=== PATIENT | male | born 1965 | race Two or more races ===

== ENCOUNTER 2020-09-07 09:47 | Outpatient (CLI) | payer BC, OTHER ==
[2020-09-07 10:45] LABS: *BILIRUBIN,URIN NEGATIVE (NEGATIVE); *BLOOD, URINE NEGATIVE (NEGATIVE); *CLARITY,URINE SLIGHTLY CLOUDY (CLEAR); *COLOR,URINE YELLOW (YELLOW); *KETONES,URINE NEGATIVE (NEGATIVE); *UROBILINOGEN,URINE 0.2 E.U./dl (NORMAL); BASOPHILS # (AUTO) 0.1 K/uL (0.0-8.0); BASOPHILS % (AUTO) 0.7 % (0.0-2.0); EOSINOPHILS # (AUTO) 0.2 K/uL (0.0-0.7); EOSINOPHILS % (AUTO) 2.4 % (0.0-7.0); HEMATOCRIT 45.8 % (36.7-47.1); HEMOGLOBIN 15.8 g/dL (12.5-16.3); LEUKOCYTE ESTERASE ,URINE NEGATIVE (NEGATIVE); LYMPHOCYTES # (AUTO) 2.8 K/uL (20.0-40.0); LYMPHOCYTES % (AUTO) 36.8 % (20.5-51.5); MEAN CORPUSCULAR HEMOGLOBIN 30.8 uug (23.8-33.4); MEAN CORPUSCULAR HGB CONC 34 g/dL (32.5-36.3); MEAN CORPUSCULAR VOLUME 89.3 fL (73.0-96.2); MONOCYTES # (AUTO) 0.6 K/uL (2.0-10.0); MONOCYTES % (AUTO) 7.5 % (0.0-11.0); NEUTROPHILS # (AUTO) 4.1 K/uL (1.8-8.9); NEUTROPHILS % (AUTO) 52.6 % (38.5-71.5); NITRITE, URINE NEGATIVE (NEGATIVE); PH,URINE 5.5 (5.0-8.0); PLATELET COUNT (AUTO) 228 K/uL (152-348); RED BLOOD CELL COUNT(AUTO) 5.13 MIL/uL (4.06-5.63); UGLUCOSE NEGATIVE (NEGATIVE); WHITE BLOOD COUNT (AUTO) 7.7 K/uL (3.6-10.2)
[2020-09-07 11:17] LABS: THYROID STIMULATING HORMONE 2.009 mIU/mL (0.358-3.740)
[2020-09-07 11:59] LABS: BILIRUBIN,TOTAL 0.9 mg/dL (0.2-1.0); CREATININE 1.1 mg/dL (0.6-1.3); POTASSIUM 4.2 mmol/L (3.5-5.1); TOTAL PROTEIN, SERUM 8.2 g/dL (6.4-8.2); URIC ACID 6.3 mg/dL (3.5-7.2)
== END 2020-09-07 23:59 | disposition home or self-care (01) ==
LOC: LAB 09:47
PROVIDERS: ATTEND Internal Medicine
DX: E03.9 Hypothyroidism, unspecified (principal); E78.5 Hyperlipidemia, unspecified; B19.20 Unspecified viral hepatitis C without hepatic coma
CPT/HCPCS: 70030-TC; 82306; 84153; 84443; 84480; 84550; 85025; 86706; 86803; 87086

== ENCOUNTER 2020-09-30 06:13 | Emergency (ER) | payer BC, OTHER ==
[~2020-09-30] VITALS: Ht 165.1 cm; Wt 70.3 kg
--- NOTE | 2020-09-30 06:30 | NUR ---
Pt arrived at the ER with complaint of lost of taste.
--- NOTE | 2020-09-30 06:41 | NUR ---
Dr. Hawkins at bedside for MSE.
--- NOTE | 2020-09-30 07:08 | NUR ---
Report given to day shift nurse Obed.
--- NOTE | 2020-09-30 07:24 | NUR ---
Pt Given d/c instructions, pt verbalized understanding.
--- NOTE | 2020-09-30 07:25 | NUR ---
Patient discharged to home in stable condition. Written and verbal after care instructions given. Patient verbalizes understanding of instructions. Stressed follow up or return to ER for worsening s/s.
--- NOTE | 2020-09-30 07:47 | NUR ---
Notified pt of rapid results by phone. Advised to quarentine 10 days per MD.
== END 2020-09-30 07:25 | disposition home or self-care (01) ==
LOC: ER 06:18
DX: U07.1 COVID-19 (principal); R43.8 Other disturbances of smell and taste; R03.0 Elevated blood-pressure reading, without diagnosis of hypertension; Z95.5 Presence of coronary angioplasty implant and graft
CPT/HCPCS: A4663

== ENCOUNTER 2020-12-21 08:55 | Outpatient (CLI) | payer BC, OTHER ==
[2020-12-21 09:51] LABS: BASOPHILS # (AUTO) 0.1 K/uL (0.0-8.0); BASOPHILS % (AUTO) 0.7 % (0.0-2.0); EOSINOPHILS # (AUTO) 0.2 K/uL (0.0-0.7); HEMATOCRIT 44.1 % (36.7-47.1); HEMOGLOBIN 15.3 g/dL (12.5-16.3); LYMPHOCYTES # (AUTO) 3.1 K/uL (20.0-40.0); LYMPHOCYTES % (AUTO) 40.4 % (20.5-51.5); MEAN CORPUSCULAR HEMOGLOBIN 31.1 uug (23.8-33.4); MEAN CORPUSCULAR HGB CONC 35 g/dL (32.5-36.3); MEAN CORPUSCULAR VOLUME 89.4 fL (73.0-96.2); MONOCYTES # (AUTO) 0.6 K/uL (2.0-10.0); MONOCYTES % (AUTO) 8.3 % (0.0-11.0); NEUTROPHILS # (AUTO) 3.7 K/uL (1.8-8.9); NEUTROPHILS % (AUTO) 47.6 % (38.5-71.5); PLATELET COUNT (AUTO) 225 K/uL (152-348); RED BLOOD CELL COUNT(AUTO) 4.94 MIL/uL (4.06-5.63); WHITE BLOOD COUNT (AUTO) 7.7 K/uL (3.6-10.2)
[2020-12-21 10:05] LABS: POTASSIUM 4.2 mmol/L (3.5-5.1); TOTAL PROTEIN, SERUM 8.1 g/dL (6.4-8.2)
[2020-12-21 10:13] LABS: THYROID STIMULATING HORMONE 2.344 mIU/mL (0.358-3.740)
== END 2020-12-21 23:59 | disposition home or self-care (01) ==
LOC: LAB 08:55
PROVIDERS: ATTEND Internal Medicine Gastroenterology
DX: K59.00 Constipation, unspecified (principal); R10.9 Unspecified abdominal pain; R12 Heartburn
CPT/HCPCS: 82105; 84443; 85025; 86704; 86803; 87340; 87350; 87536; 87806

== ENCOUNTER 2020-12-31 06:31 | Outpatient (CLI) | payer BC, OTHER | END 2020-12-31 23:59 | disposition home or self-care (01) | LOC: LAB 06:31 | PROVIDERS: ATTEND Internal Medicine Gastroenterology | DX: Z01.812 Encounter for preprocedural laboratory examination (principal); Z20.822 Contact with and (suspected) exposure to COVID-19 ==

== ENCOUNTER 2021-01-03 11:03 | Day surgery (SDC) | payer BC, OTHER ==
[2021-01-03] MEDS ORDERED: PROPOFOL 200 MG/20 ML BOTTLE IV ONE (11:04)
[2021-01-03 11:37] LABS: *BILIRUBIN,URIN NEGATIVE (NEGATIVE); *BLOOD, URINE NEGATIVE (NEGATIVE); *CLARITY,URINE SLIGHTLY CLOUDY (CLEAR); *COLOR,URINE YELLOW (YELLOW); *KETONES,URINE NEGATIVE (NEGATIVE); *UROBILINOGEN,URINE 0.2 E.U./dl (NORMAL); LEUKOCYTE ESTERASE ,URINE NEGATIVE (NEGATIVE); NITRITE, URINE NEGATIVE (NEGATIVE); PH,URINE 5.5 (5.0-8.0); UGLUCOSE NEGATIVE (NEGATIVE)
[2021-01-03 12:10] LABS: BASOPHILS # (AUTO) 0.1 K/uL (0.0-8.0); BASOPHILS % (AUTO) 0.7 % (0.0-2.0); EOSINOPHILS # (AUTO) 0.2 K/uL (0.0-0.7); EOSINOPHILS % (AUTO) 2.3 % (0.0-7.0); HEMATOCRIT 46.9 % (36.7-47.1); LYMPHOCYTES # (AUTO) 3.6 K/uL (20.0-40.0); LYMPHOCYTES % (AUTO) 38.3 % (20.5-51.5); MEAN CORPUSCULAR HEMOGLOBIN 30.6 uug (23.8-33.4); MEAN CORPUSCULAR HGB CONC 34 g/dL (32.5-36.3); MEAN CORPUSCULAR VOLUME 89.6 fL (73.0-96.2); MONOCYTES # (AUTO) 0.8 K/uL (2.0-10.0); MONOCYTES % (AUTO) 8.3 % (0.0-11.0); NEUTROPHILS # (AUTO) 4.7 K/uL (1.8-8.9); NEUTROPHILS % (AUTO) 50.4 % (38.5-71.5); PLATELET COUNT (AUTO) 229 K/uL (152-348); RED BLOOD CELL COUNT(AUTO) 5.23 MIL/uL (4.06-5.63); WHITE BLOOD COUNT (AUTO) 9.4 K/uL (3.6-10.2)
[2021-01-03 12:13] LABS: CREATININE 1.1 mg/dL (0.6-1.3); POTASSIUM 3.7 mmol/L (3.5-5.1)
== END 2021-01-03 14:43 | disposition home or self-care (01) ==
LOC: DS 11:03
PROVIDERS: ATTEND Internal Medicine Gastroenterology
DX: K59.00 Constipation, unspecified (principal); R10.13 Epigastric pain; B19.20 Unspecified viral hepatitis C without hepatic coma; R11.10 Vomiting, unspecified; K44.9 Diaphragmatic hernia without obstruction or gangrene; K29.50 Unspecified chronic gastritis without bleeding; K29.70 Gastritis, unspecified, without bleeding; K31.89 Other diseases of stomach and duodenum; K63.89 Other specified diseases of intestine; K64.8 Other hemorrhoids; K21.00 Gastro-esophageal reflux disease with esophagitis, without bleeding; I25.10 Atherosclerotic heart disease of native coronary artery without angina pectoris; Z79.899 Other long term (current) drug therapy; Z98.890 Other specified postprocedural states
CPT/HCPCS: 36415; 43239; 45378; 71045; 80048; 81003; 85025; 85610; 93005; J7120; A4217; A4663; J3490

== ENCOUNTER 2021-01-20 07:10 | Outpatient (CLI) | payer BC, OTHER | END 2021-01-20 23:59 | disposition home or self-care (01) | LOC: LAB 07:10 | PROVIDERS: ATTEND Internal Medicine Gastroenterology | DX: B19.20 Unspecified viral hepatitis C without hepatic coma (principal) | CPT/HCPCS: 36415 ==

== ENCOUNTER 2021-04-04 08:02 | Outpatient (CLI) | payer BC, OTHER | END 2021-04-04 23:59 | disposition home or self-care (01) | LOC: LAB 08:02 | PROVIDERS: ATTEND Internal Medicine Gastroenterology | DX: A04.8 Other specified bacterial intestinal infections (principal) ==

== ENCOUNTER 2021-04-21 07:57 | Outpatient (CLI) | payer BC, OTHER ==
[2021-04-21 08:34] LABS: *AMPHETAMINE, URINE NEGATIVE (NEGATIVE); *CANNABINOID, URINE NEGATIVE (NEGATIVE); *COCCAINE, URINE NEGATIVE (NEGATIVE); *OPIATE, URINE NEGATIVE (NEGATIVE); *PHENCYCLIDINE SCREEN,URINE NEGATIVE (NEGATIVE)
== END 2021-04-21 23:59 | disposition home or self-care (01) ==
LOC: LAB 07:57
PROVIDERS: ATTEND Internal Medicine Gastroenterology
DX: B19.20 Unspecified viral hepatitis C without hepatic coma (principal)

== ENCOUNTER 2021-06-27 06:36 | Outpatient (CLI) | payer BC, OTHER ==
[2021-06-27 07:07] LABS: HEMATOCRIT 44.1 % (36.7-47.1); MEAN CORPUSCULAR HEMOGLOBIN 30.8 uug (23.8-33.4); MEAN CORPUSCULAR VOLUME 89.2 fL (73.0-96.2); PLATELET COUNT (AUTO) 214 K/uL (152-348)
[2021-06-27 08:04] LABS: BILIRUBIN,TOTAL 0.9 mg/dL (0.2-1.0); CREATININE 1.3 mg/dL (0.6-1.3); POTASSIUM 4.2 mmol/L (3.5-5.1); TOTAL PROTEIN, SERUM 8.1 g/dL (6.4-8.2)
[2021-07-01 20:37] LABS: *HCV QUANT 80
[2021-07-01 20:38] LABS: *HCV QUANTLOG10 1.903
== END 2021-06-27 23:59 | disposition home or self-care (01) ==
LOC: LAB 06:36
PROVIDERS: ATTEND Internal Medicine Gastroenterology
DX: B19.20 Unspecified viral hepatitis C without hepatic coma (principal)
CPT/HCPCS: 85025; 85730; 87521

== ENCOUNTER 2021-07-11 06:37 | Outpatient (CLI) | payer BC, OTHER ==
[2021-07-11 07:10] LABS: HEMATOCRIT 44.1 % (36.7-47.1); MEAN CORPUSCULAR HEMOGLOBIN 30.9 uug (23.8-33.4); MEAN CORPUSCULAR VOLUME 89.3 fL (73.0-96.2); PLATELET COUNT (AUTO) 210 K/uL (152-348)
[2021-07-11 07:26] LABS: BILIRUBIN,TOTAL 0.9 mg/dL (0.2-1.0); CREATININE 1.3 mg/dL (0.6-1.3); POTASSIUM 4.3 mmol/L (3.5-5.1); TOTAL PROTEIN, SERUM 7.9 g/dL (6.4-8.2)
[2021-07-19 11:05] LABS: *HCV QUANT <15
== END 2021-07-11 23:59 | disposition home or self-care (01) ==
LOC: LAB 06:37
PROVIDERS: ATTEND Internal Medicine Gastroenterology
DX: B19.20 Unspecified viral hepatitis C without hepatic coma (principal)
CPT/HCPCS: 85025; 85730; 87521

== ENCOUNTER → 2021-11-11 | Outpatient (CLI) | payer BC, OTHER ==
[2021-11-11 07:19] LABS: HEMATOCRIT 41.6 % (36.7-47.1); MEAN CORPUSCULAR HEMOGLOBIN 31.3 uug (23.8-33.4); MEAN CORPUSCULAR VOLUME 88.3 fL (73.0-96.2); PLATELET COUNT (AUTO) 230 K/uL (152-348)
[2021-11-11 08:06] LABS: BILIRUBIN,TOTAL 0.7 mg/dL (0.2-1.0); CREATININE 1.2 mg/dL (0.6-1.3); POTASSIUM 4.2 mmol/L (3.5-5.1); TOTAL PROTEIN, SERUM 7.7 g/dL (6.4-8.2)
== END | disposition home or self-care (01) ==
LOC: LAB 07:06
PROVIDERS: ATTEND Internal Medicine Gastroenterology
DX: B19.20 Unspecified viral hepatitis C without hepatic coma (principal)
CPT/HCPCS: 85025; 85730; 87521

== ENCOUNTER 2021-12-11 22:41 | Emergency (ER) | payer BC, OTHER ==
[~2021-12-11] VITALS: Ht 165.1 cm; Wt 72.6 kg
--- NOTE | 2021-12-11 22:48 | NUR ---
PT AMBULATED TO ER C/O ITCHY AND PAINFUL BODY RASH X4 DAYS, STATES HE HAD A CT SCAN ON SUNDAY MORNING. NO SOB OR LABORED BREATHING, AGFEBRILE. DENIES CP/PRESSURE. NO GI/ DISTRESS. NO N/V. CLEAR SPEECH, COMPLETE SENTNECES.
--- NOTE | 2021-12-11 22:49 | NUR ---
DR. MINA López AT BEDSIDE, MSE IN PROGRESS.
--- NOTE | 2021-12-11 22:50 | NUR ---
patient being evaluated at this time by Dr. andrews.
[2021-12-11] MEDS ORDERED: diphenhydrAMINE 50 MG/1 ML VIAL IM ONE (23:00)
[2021-12-11] MEDS ORDERED: predniSONE 20 MG TABLET PO ONE (23:00)
[2021-12-11] MEDS ORDERED: predniSONE 20 MG TABLET ONE (23:01)
[2021-12-11] MEDS ORDERED: diphenhydrAMINE 50 MG/1 ML VIAL ONE (23:01)
[2021-12-11] MEDS ORDERED: PRED20TA PO (23:03)
[2021-12-11 23:12] VITALS: BP 128/88
--- NOTE | 2021-12-11 23:12 | NUR ---
Patient discharged to home in stable condition. Written and verbal after care instructions given. Patient verbalizes understanding of instructions. Stressed follow up or return to ER for worsening s/s. No changes in LOC. Accompanied by .
== END 2021-12-11 23:13 | disposition home or self-care (01) ==
LOC: ER 22:47
DX: R21 Rash and other nonspecific skin eruption (principal); Z95.5 Presence of coronary angioplasty implant and graft
CPT/HCPCS: 96372; 99283; J1200; J7512; A4663

== ENCOUNTER 2021-12-19 08:43 | Outpatient (CLI) | payer BC, OTHER ==
[~2021-12-19 08:43] MED LIST: PRED20TA PO
[2021-12-19 09:16] LABS: *BILIRUBIN,URIN NEGATIVE (NEGATIVE); *BLOOD, URINE NEGATIVE (NEGATIVE); *CLARITY,URINE CLEAR (CLEAR); *COLOR,URINE YELLOW (YELLOW); *KETONES,URINE NEGATIVE (NEGATIVE); *UROBILINOGEN,URINE 0.2 E.U./dl (NORMAL); LEUKOCYTE ESTERASE ,URINE NEGATIVE (NEGATIVE); NITRITE, URINE NEGATIVE (NEGATIVE); PH,URINE 5.5 (5.0-8.0); UGLUCOSE NEGATIVE (NEGATIVE)
[2021-12-19 09:18] LABS: MEAN CORPUSCULAR HEMOGLOBIN 30.5 uug (23.8-33.4); PLATELET COUNT (AUTO) 254 K/uL (152-348)
[2021-12-19 09:32] LABS: BILIRUBIN,TOTAL 1.1 mg/dL (0.2-1.0); CREATININE 1.2 mg/dL (0.6-1.3); POTASSIUM 3.8 mmol/L (3.5-5.1); TOTAL PROTEIN, SERUM 7.9 g/dL (6.4-8.2)
[2021-12-21 14:06] LABS: *IGG SUBCLASS 1 591 mg/dL (248-810); *IGG SUBCLASS 2 369 mg/dL (130-555); *IGG SUBCLASS 3 48 mg/dL (15-102); *IGG SUBCLASS 4 28 mg/dL (2-96); *IMMUNOGLOBULIN G, SERUM 1058 mg/dL (603-1613)
== END 2021-12-19 23:59 | disposition home or self-care (01) ==
LOC: LAB 08:43
PROVIDERS: ATTEND Physician Assistant Medical
DX: D58.2 Other hemoglobinopathies (principal)
CPT/HCPCS: 36415; 82306; 84153; 85025; 86803; 87086

== ENCOUNTER 2022-06-06 07:40 | Outpatient (CLI) | payer BC, OTHER ==
[2022-06-06 08:21] LABS: HEMATOCRIT 42.3 % (36.7-47.1); MEAN CORPUSCULAR VOLUME 88.6 fL (73.0-96.2); PLATELET COUNT (AUTO) 200 K/uL (152-348)
[2022-06-06 10:35] LABS: BILIRUBIN,TOTAL 0.6 mg/dL (0.2-1.0); CREATININE 1.3 mg/dL (0.6-1.3); TOTAL PROTEIN, SERUM 7.5 g/dL (6.4-8.2)
== END 2022-06-06 23:59 | disposition home or self-care (01) ==
LOC: LAB 07:40
PROVIDERS: ATTEND Family Medicine
DX: B19.20 Unspecified viral hepatitis C without hepatic coma (principal)
CPT/HCPCS: 85025; 85730

== ENCOUNTER 2022-06-27 09:07 | Outpatient (CLI) | payer BC, OTHER | END 2022-06-27 23:59 | disposition home or self-care (01) | LOC: LAB 09:07 | PROVIDERS: ATTEND Nurse Practitioner | DX: K74.00 Hepatic fibrosis, unspecified (principal) | CPT/HCPCS: 76700 ==

== ENCOUNTER 2022-10-31 09:18 | Outpatient (CLI) | payer BC, OTHER ==
[2022-10-31 09:48] LABS: MEAN CORPUSCULAR HEMOGLOBIN 30.2 uug (23.8-33.4); MEAN CORPUSCULAR VOLUME 87.9 fL (73.0-96.2); PLATELET COUNT (AUTO) 232 K/uL (152-348)
[2022-10-31 09:54] LABS: *BILIRUBIN,URIN NEGATIVE (NEGATIVE); *CLARITY,URINE CLEAR (CLEAR); *COLOR,URINE YELLOW (YELLOW); *KETONES,URINE NEGATIVE (NEGATIVE); *UROBILINOGEN,URINE 0.2 E.U./dl (NORMAL); LEUKOCYTE ESTERASE ,URINE NEGATIVE (NEGATIVE); NITRITE, URINE NEGATIVE (NEGATIVE); UGLUCOSE NEGATIVE (NEGATIVE)
[2022-10-31 09:56] LABS: *BLOOD, URINE TRACE (NEGATIVE)
[2022-10-31 10:14] LABS: THYROID STIMULATING HORMONE 1.387 mIU/mL (0.358-3.740)
[2022-10-31 10:33] LABS: BILIRUBIN,TOTAL 0.7 mg/dL (0.2-1.0); CREATININE 1.1 mg/dL (0.6-1.3); POTASSIUM 4.1 mmol/L (3.5-5.1)
[2022-10-31 11:34] LABS: RBC,URINE 0-3 /HPF (0-3); WBC,URINE 0-3 /HPF (0-3)
[2022-10-31 11:35] LABS: BACTERIA,URINE FEW /HPF (NONE SEEN); MUCUS,URINE FEW /LPF (0-FEW); SQUAMOUS EPITHELIAL CELL,UR FEW /HPF (NONE SEEN)
== END 2022-10-31 23:59 | disposition home or self-care (01) ==
LOC: LAB 09:18
PROVIDERS: ATTEND Psychiatry & Neurology Psychiatry
DX: Z00.00 Encounter for general adult medical examination without abnormal findings (principal)
CPT/HCPCS: 36415; 82306; 82746; 84153; 84443; 85025

== ENCOUNTER 2024-04-17 17:01 | Emergency (ER) | payer BC, OTHER ==
[~2024-04-17] VITALS: Ht 165.1 cm; Wt 77.1 kg
[2024-04-17] MEDS ORDERED: FAMOTIDINE 20 MG TABLET ONE (17:32)
[2024-04-17] MEDS ORDERED: predniSONE 50 MG TABLET ONE ×2 (17:32→17:34)
[2024-04-17] MEDS ORDERED: diphenhydrAMINE 50 MG CAPSULE ONE (17:33)
[2024-04-17] MEDS ORDERED: FAMO40TA7 PO (17:38)
[2024-04-17] MEDS ORDERED: DIPH25CA83 PO (17:38)
[2024-04-17] MEDS ORDERED: PRED50TA PO (17:38)
[2024-04-17] MEDS: FAMOTIDINE 20 MG TABLET PO ONE (17:41)
[2024-04-17] MEDS: predniSONE 50 MG TABLET PO ONE (17:41)
[2024-04-17] MEDS: diphenhydrAMINE 50 MG CAPSULE PO ONE (17:41)
[2024-04-17 17:59] VITALS: BP 123/89; TEMP 78.8; O2SAT 95
== END 2024-04-17 18:02 | disposition home or self-care (01) ==
LOC: ER 17:03
DX: R21 Rash and other nonspecific skin eruption (principal); Y84.0 Cardiac catheterization as the cause of abnormal reaction of the patient, or of later complication, without mention of misadventure at the time of the procedure; I25.10 Atherosclerotic heart disease of native coronary artery without angina pectoris; Z98.890 Other specified postprocedural states; Z79.899 Other long term (current) drug therapy; Z88.1 Allergy status to other antibiotic agents; Y92.89 Other specified places as the place of occurrence of the external cause
CPT/HCPCS: 99284; Q0163; J7512; A4606; A4663